=== PATIENT | male | born 1955 | race Caucasian/White ===

== ENCOUNTER 2023-05-12 16:29 | Emergency (ER) | payer OTHER, SELFPAY ==
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
[2023-05-12 16:31] VITALS: BP 137/64; PULSE 70; RESP 18; TEMP 36.4; O2SAT 99
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
--- NOTE | 2023-05-12 16:45 | ECG_ITS ---
Measurements Intervals [place] Rate: 71 P: 56 NH: 172 QRS: 27 QRSD: 105 T: 81 QT: 387 QTc: 421 Interpretive Statements SINUS RHYTHM WITHIN NORMAL LIMITS NO PREVIOUS ECG AVAILABLE FOR COMPARISON Electronically Signed On 05-13-2023 16:45:42 SALVAGE REPAIRER by Baron Castillo M.D.
== END 2023-05-12 19:52 | disposition home or self-care (01) ==
PROVIDERS: Emergency Provider Nurse Practitioner Family
DX: S39.012A Strain of muscle, fascia and tendon of lower back, initial encounter (principal); V49.50XA Passenger injured in collision with unspecified motor vehicles in traffic accident, initial encounter
CPT/HCPCS: 70450; 72125; 72128; 72131; 73030; 93005; 99284; A4565; L0140

== ENCOUNTER 2024-05-30 12:55 | Emergency (ER) | payer OTHER, SELFPAY ==
--- NOTE | ~2024-05-30 | XR_ITS ---
EXAMINATION: XR foot RT min 3V DATE: 05/30/2024 14:13 INDICATION: Right foot injury. TECHNIQUE: 3 views of right foot were obtained. COMPARISON: None. FINDINGS: Alignment is normal. No fracture. Joint spaces are normal. There are enthesophytes at the p osterior and plantar aspects of calcaneal tuberosity. IMPRESSION: 1. No fracture. Reviewed, dictated and finalized at location A. [employer] IMPRESSION: 1. No fracture.
[2024-05-30 12:57] VITALS: BP 160/74; PULSE 91; RESP 18; TEMP 36.7; O2SAT 98
--- OUTSIDE RECORDS SUMMARY | 2024-05-30 12:58 | XMS_ITS | Patient Health Record ---
Author Organization [facility] Address [address] [place] [address] Care Team Providers Care Assistant Center Manager Name Role Phone Jb Bejarano Primary Care Provider Reason For Referral No Information Plan Of Treatment No Information Insurance Providers Payer Name Payer Address Payer Phone Subscriber Number Group Number Insured Name Patient Relationship to Insured Coverage Start Date Coverage End Date [facility] [address] [address] [place] [address] [id number] Checo Carr Self - patient is the insured 3
--- OUTSIDE RECORDS SUMMARY | 2024-05-30 15:17 | XMS_ITS ---
Author Name [facility] [place] [facility] Address [address] [place] [address] Care Team Providers Care Maintenance Of Way Clerk Name Role Phone IVAN MEDINA Primary Care Provider Unavailabl e Insurance Providers: All historical and current Section Date Range: From patient's date of to the date document was created. This section includes the names of all active insurance providers for the patient. Insurance Provider Type of Coverage Plan Name Start of Policy Coverage End of Policy Coverage Group Number Member ID Insurance Provider's Telephone Number Policy Wolf's Name Patient's Relationship to Policy Wolf MEDICARE (WNR) MEDICARE (M) PART A August 06, 2021 PART A [id number] Rajesh CARR RUCE PATIENT MEDICARE (WNR) MEDICARE (M) PART A August 06, 2021 PART A [id number] Rajesh CARR RUCE PATIENT OFFICE OF [facility] [id number] TORT FEASOR TORT FEASO R May 12, 2023 TORT FEASOR [id number] Rajesh CARR RUCE PATIENT Selected Encounter This section includes the information on record at [place] for the Encounter. Date/Time Encounter Type Encounter Description Reason Provider Source Jan 16, 2024 11:37 AM Outpatient Encounter ADMIN PAT ACTIVTIES (MASNONCT) IVAN MEDINA IHAmrita Encounter Template Text not used by [place] Plan of Treatment: Future Appointments (+ 6 months) and Future Tests (+/- 45 days) The Plan of Treatment section includes future care activities for the patient from all [place] [facility]. This section includes future appointments and future orders which are active, pending or scheduled. Future Appointments This section includes appointments that were scheduled to occur 6 months from the date of the Encounter, up to a maximum of 20 appointments. The data comes from all [place] treatment facilities. Appointment Date/Time Appointment Type Appointme nt Facility Name Feb 03, 2024 09:30 AM AMBULATORY - MEDICINE [facility] Jun 04, 2024 09:30 AM AMBULATORY - SURGERY [facility] Social History: Smoking Status (Most current) and Tobacco Use (All prior to encounter date) This section includes the most current, and the historical, smoking and tobacco- related health factors from the [place] facility where the Encounter took place. Current Smoking Status This section includes the most current smoking, or tobacco-related health factor, from the [place] facility where the Encounter took place. Date/Time Current Smoking Status Comment Facil ity Oct 25, 2022 05:52 PM ORYX ADMIT TOBACCO SCREEN YES [facility] Tobacco Use History This section includes a history of the smoking, or tobacco-related health factors, that were collected on or before the date of the Encounter. The data comes from the [place] facility where the Encounter took place. Date/Time Smoking Status/Tobacco Use Comment F acility Oct 25, 2022 05:52 PM ORYX ADMIT TOBACCO USE CIGS GR 5D [facility] Oct 25, 2022 05:52 PM ORYX DAILY TOBACCO HOUSE SUPERINTENDENT REFUSED [facility] Oct 25, 2022 05:52 PM ORYX DAILY TOBACCO MEDS REFUSED [facility] Advance Directives: All historical and current Section Date Range: From patient's date of to the date document was created. This section includes ALL of a patient's completed or amended [place] Advance and Rescinded Directives. The entries below indicate that a directive exists for the patient, but an actual copy is not included with this document. The data comes from all [place] facilities. Date Advance Directives Provider Source Oct 31, 2022 ADVANCE DIRECTIVE DISCUSSION CORINNE JENKINSER [facility] Oct 26, 2022 ADVANCE DIRECTIVE DISCUSSION ROSIE FRANCOIS [facility] Mar 10, 2002 ADVANCE DIRECTIVE ROSE HAQUE [facility] Encounter Notes: All associated encounter notes This section contains the clinical notes associated to the Encounter. Date/Time Encounter Note(s) Provider Source Jan 16, 2024 11:37 AM PHYSICIAN LETTERS: LOCAL TITLE: NO CONTACT LETTER ST STANDARD TITLE: PHYSICIAN LETTERS DATE OF NOTE: JAN 16, 2024@11:37 ENTRY DATE: JAN 16, 2024@11:37:34 AUTHOR: CHANEL MORENO COSIGNER: URGENCY: STATUS: COMPLETED [facility] [address] [place] [address] JAN 16, 2024 CHECO CARR [address] [place] [address] Dear Checo Carr, Thank you for choosing the [facility] as your primary choice for health care. As a partner in your health care, we are attempting to contact you because we have been unsuccessful in reaching you by phone to schedule your clinic appointment. Please call us at [phone], extension [phone] to speak to us regarding making an appointment in the [facility] clinic. Your good health is important to us. Please contact us within 2 weeks from the date of this letter. If we do not hear from you, we will notify your referring provider and a new referral will be required to schedule an appointment. IMPORTANT: Due to COVID-19 we have greatly expanded our telehealth options, please contact the clinic to inquire about scheduling. Sincerely, CHANEL MORENO LEAD MANAGER FOOD BEVERAGE CHECO CARR ERICA S [facility]
--- OUTSIDE RECORDS SUMMARY | 2024-05-30 15:17 | XMS_ITS | Continuity of Care Document ---
Author Name [facility] Organization 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 Unavailable Unavailable Problems Combined list of problems from Department of Defense and Veterans Affairs facilities. It does not include entries that were removed or entered in error. Problem Status Onset Date Problem Type Date of Resolution Comments Source Adenomatous polyp of colon Active Condition May 11, 2014 Entered By: ZINA FRANCISCO Comment: with low grade dysplasia from 02/2010 [facility] Alcohol abuse Active Condition 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, 2014 Entered By: ZINA FRANCISCO Comment: no dysplasia per EGD and path from 02/2010 [facility] Augustine's Esophagus Active Condition Mar 13, 2010 Entered By: KIRSTIE ENCARNACION Comment: EGD 02/22/10 [facility] no dysplasia repeat EGD 1 year [facility] Benign essential hypertension Active Condition [facility] Cervical radiculopathy Active Condition [facility] cervical surgery Active Condition Aug 03, 2011 Entered By: DONNA ALONSO Comment: 07/2011 anterior cervical diskectomy,allo graft insertion [facility] Chronic obstructive lung disease Active Condition [facility] Colonic polyp Active Condition [facility] Coronary artery disease Active Condition [facility] Depressive disorder Active Condition [facility] Esophageal Reflux (ICD-9-CM 530.81) Active Condition [facility] Essential Hypertension (ICD-9-CM 401.9) Active Condition [facility] Family History of Colon Cancer Active Condition Mar 29, 2000 Entered By: DIANE ALVES Comment: Father diagnosed with colon cancer age 61 [facility] Family Hx-GI Malignancy Active Condition [facility] Gastroesophageal reflux disease Active Condition [facility] Gastrooesophageal reflux disease Active Condition [facility] H/O: attempted suicide Active Condition [facility] Headache * (ICD-9-CM 784.0) Active Condition [facility] History of cocaine abuse Active Condition [facility] HTN - Hypertension ([facility] [id number]) Active Condition [facility] Hyponatremia Active Condition [facility] Inguinal hernia without obstruction AND without gangrene Active Condition [facility] Irritable colon Active Condition [facility] Neck pain Active Condition [facility] Open wound of fingers, with tendon involvement (ICD-9-CM 883.2) Active Condition [facility] Personal History of Colonic Polyps Active Condition Mar 13, 2010 Entered By: KIRSTIE ENCARNACION Comment: colonoscopy 02/22/10 2 tubulovillous adenomas 1 tubular adenDec 2009 Entered By: KIRSTIE ENCARNACION Comment: repeat colonoscopy 3 years [facility] Restless Legs * (ICD-9-CM 333.99) Active Condition [facility] Routine General Medical Examination at a Health Care Facility * Active Condition [facility] Seizure disorder Active Condition [facility] Senile hyperkeratosis Active Condition [facility] Smoker Active Condition [facility] Tobacco dependence Active Condition [facility] ACUTE SINUSITIS NOS Inactive Condition 09/08/2001 [facility] Amputation of the index finger Inactive Condition 01/25/2010 [facility] Amputation of the middle finger Inactive Condition 01/25/2010 [facility] Amputation of the ring finger Inactive Condition 01/25/2010 [facility] CELLULITIS NOS Inactive Condition 09/08/2001 [facility] COMB DRUG DEP NEC-UNSPEC Inactive Condition 01/25/2010 [facility] IDIO PERIPH NEURPTHY NOS Inactive Condition 01/25/2010 [facility] NONSPECIF SKIN ERUPT NEC Inactive Condition 01/25/2010 [facility] SPC SCRN MALIG,OTH SITES Inactive Condition 01/25/2010 [facility] TOBACCO USE DISORDER Inactive Condition 01/25/2010 [facility] Diagnosis: ICD-10-CM I25.10 Athscl heart disease of [place] coronary artery w/o ang pctrs Active Diagnosis [facility] Diagnosis: ICD-10-CM Z01.810 Encounter for preprocedural cardiovascular examination Active Diagnosis [facility] Diagnosis: ICD-10-CM R19.7 Diarrhea, unspecified Active Diagnosis [facility] Diagnosis: ICD-10-CM R11.10 Vomiting, unspecified Active Diagnosis [facility] Diagnosis: ICD-10-CM R10.13 Epigastric pain Active Diagnosis [facility] Diagnosis: ICD-10-CM K29.00 Acute gastritis without bleeding Active Diagnosis [facility] Diagnosis: ICD-10-CM I10 Essential (primary) hypertension Active Diagnosis [facility] Diagnosis: ICD-10-CM I25.119 Athscl heart disease of [place] cor art w unsp ang pctrs Active Diagnosis [facility] Diagnosis: ICD-10-CM 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 Medication Details Route Status Patient Instructions Prescription Expires Prescription Number Last Dispense Date Ordering Provider Order Date Order Qty Source ALBUTEROL 100MCG/IPRA TROPIUM BR 20MCG/SPRAY INHALER,ORA L,4GM INHALE 1 PUFF ORAL INHALATI ON FOUR TIMES A DAY DIRECTED FOR COPD RESPIR ATORY (INHAL ATION) SUSPEND ED 01/23/2025 [id number] NAVID MEDINA AMGELY T 2024 3 [facility] ALBUTEROL 100MCG/IPRA TROPIUM BR 20MCG/SPRAY INHALER,ORA L,4GM INHALE 1 PUFF ORAL INHALATI ON FOUR TIMES A DAY DIRECTED FOR COPD RESPIR ATORY (INHAL ATION) DISCONT INUED 03/27/2024 [id number] SHANTE NEWMAN 2022 3 [facility] ALBUTEROL SO4 90MCG/ACTUA T (CFC-F) INHL,ORAL,8 .5GM INHALE 1 PUFF BY ORAL INHALATI ON FOUR TIMES A DAY NEEDED FOR ASTHMA SHAKE WELL. RINSE MOUTHPIE CE FREQUENT LY TO PREVENT CLOGGING . RESPIR ATORY (INHAL ATION) ACTIVE 01/23/2025 [id number] 4 NAVID MEDINA T 2023 3 [facility] ALBUTEROL SO4 90MCG/ACTUA T (CFC-F) INHL,ORAL,8 .5GM INHALE 1 PUFF BY ORAL INHALATI ON FOUR TIMES A DAY NEEDED FOR ASTHMA SHAKE WELL. RINSE MOUTHPIE CE FREQUENT LY TO PREVENT CLOGGING . RESPIR ATORY (INHAL ATION) DISCONT INUED 10/30/2023 [id number] 4 [facility] JAMAL Juarez 2022 3 [facility] Albuterol Sulfate 0.1 mg/Actuatio n + Ipratropium Aurora 0.02 mg/Actuat Aerosol powder, Inhalation INHALE 1 PUFF ORAL INHALATI ON FOUR TIMES A DAY DIRECTED FOR COPD 03/27/2024 [id number] SHANTE NEWMAN 2022 3 [facility] ASPIRIN 81MG TAB,EC TAKE ONE TABLET BY MOUTH ONCE A DAY FOR CARDIOVA SCULAR DISEASE TAKE WITH FOOD. ORAL ACTIVE 02/03/2025 [id number] 4 Larry WALKER 2023 120 [facility] ASPIRIN 81MG TAB,EC TAKE ONE TABLET BY MOUTH ONCE A DAY FOR CARDIOVA SCULAR DISEASE TAKE WITH FOOD. ORAL DISCONT INUED (EDIT) 11/14/2024 [id number] 4 [facility] Juarez 2023 120 [facility] ASPIRIN 81MG TAB,EC TAKE ONE TABLET BY MOUTH ONCE A DAY FOR CARDIOVA SCULAR DISEASE TAKE WITH FOOD. ORAL DISCONT INUED 10/30/2023 [id number] 4 [facility] 2022 120 [facility] ASPIRIN EC (U/D) 81 MG ORAL TBEC TAKE ONE TABLET BY MOUTH ONCE A DAY FOR CARDIOVA SCULAR DISEASE TAKE WITH FOOD. 10/30/2023 [id number] 4 [facility] 2023 120 [facility] atorvastati n (U/D) 80 MG ORAL TAB TAKE ONE TABLET BY MOUTH EVERY EVENING FOR HIGH CHOLESTE ROL 10/30/2023 [id number] [facility] 2023 90 [facility] ATORVASTATI N CA 80MG TAB TAKE ONE TABLET BY MOUTH EVERY EVENING FOR HIGH CHOLESTE ROL ORAL ACTIVE 02/03/2025 [id number] 5 Larry WALKER 2024 90 [facility] ATORVASTATI N CA 80MG TAB TAKE ONE TABLET BY MOUTH EVERY EVENING FOR HIGH CHOLESTE ROL ORAL DISCONT INUED (EDIT) 01/23/2025 [id number] 4 NAVID MEDINA T 2023 90 [facility] ATORVASTATI N CA 80MG TAB TAKE ONE TABLET BY MOUTH EVERY EVENING FOR HIGH CHOLESTE ROL ORAL DISCONT INUED 10/30/2023 [id number] 4 [facility] 2022 90 [facility] BISACODYL 5 MG ORAL TBEC TAKE TWO TABLETS BY MOUTH ONE TIME TAKE BISACODY L TABLETS AT 4PM ON AFTERNOO N PRIOR TO TEST. CALL WITH ANY QUESTION S ABOUT THESE INSTRUCT IONS. WINDOW 10/31/2023 [id number] 4 ZAYNAB DURAN 2023 2 [facility] BISACODYL 5MG TAB,EC TAKE TWO TABLETS BY MOUTH ONE TIME TAKE BISACODY L TABLETS AT 4PM ON AFTERNOO N PRIOR TO TEST. CALL WITH ANY QUESTION S ABOUT THESE INSTRUCT IONS. WINDOW TAKE BISACODY L TABLETS AT 4PM ON AFTERNOO N PRIOR TO TEST. CALL [phone] WITH ANY QUESTION S ABOUT THESE INSTRUCT IONS. WINDOW ORAL 10/31/2023 [id number] 4 ZAYNAB DURAN 2023 2 [facility] CYCLOBENZAP RINE (U/D) 10 MG ORAL TAB TAKE ONE TABLET BY MOUTH THREE TIMES A DAY NEEDED FOR MUSCLE SPASM MAY CAUSE DROWSINE SS. DO NOT DRINK ALCOHOL WHILE TAKING THIS MEDICATI ON. 09/14/2023 [id number] 4 MELANIE BUCKLEY R 2023 180 [facility] CYCLOBENZAP RINE HCL 10MG TAB TAKE ONE TABLET BY MOUTH THREE TIMES A DAY NEEDED FOR MUSCLE SPASM MAY CAUSE DROWSINE SS. DO NOT DRINK ALCOHOL WHILE TAKING THIS MEDICATI ON. ORAL 09/14/2023 [id number] 4 LIBORIO BUCKLEY R 2023 180 [facility] FLOMAX (BRAND) 0.4 MG ORAL CAP TAKE ONE CAPSULE BY MOUTH EVERY EVENING APPROXIM ATELY 30 MINUTES AFTER THE SAME MEAL EACH DAY (FOR PROSTATE ) 04/18/2024 [id number] 4 DEWAYNE WHITTAKER 2023 30 [facility] FLOMAX (BRAND) 0.4 MG ORAL CAP TAKE ONE CAPSULE BY MOUTH EVERY EVENING APPROXIM ATELY 30 MINUTES AFTER THE SAME MEAL EACH DAY (FOR PROSTATE ) Discont inued 09/27/2023 [id number] 3 IVAN MEDINA 2023 30 [facility] n guaiFENesin 400 MG ORAL TAB TAKE ONE TABLET BY MOUTH EVERY 4 HOURS NEEDED FOR MUCUS THINNING TAKE WITH 8 OUNCE GLASS OF WATER. Active 07/16/2024 [id number] 4 MELANIE BUCKLEY R 2023 90 [facility] GUAIFENESIN 400MG TAB TAKE ONE TABLET BY MOUTH EVERY 4 HOURS NEEDED FOR MUCUS THINNING TAKE WITH 8 OUNCE GLASS OF WATER. ORAL ACTIVE 07/16/2024 [id number] 5 LIBORIO BUCKLEY Beata 2023 90 [facility] IBUPROFEN 600MG TAB TAKE ONE TABLET BY MOUTH THREE TIMES A DAY ORAL ACTIVE ABELARDO MENESES 2006 [facility] levETIRAcet am 500 MG ORAL TAB TAKE ONE TABLET BY MOUTH TWICE A DAY FOR SEIZURES . SWALLOW WHOLE, DO NOT CRUSH, SPLIT, OR CHEW. 12/26/2023 [id number] 4 NAVID MEDINAMOLINA T 2023 180 [facility] LEVETIRACET AM 500MG TAB TAKE ONE TABLET BY MOUTH TWICE A DAY FOR SEIZURES . SWALLOW WHOLE, DO NOT CRUSH, SPLIT, OR CHEW. ORAL ACTIVE 01/23/2025 [id number] 4 CAROL,NAVID AUGUSTE T 2023 180 [facility] LEVETIRACET AM 500MG TAB TAKE ONE TABLET BY MOUTH TWICE A DAY FOR SEIZURES . SWALLOW WHOLE, DO NOT CRUSH, SPLIT, OR CHEW. ORAL DISCONT INUED 12/26/2023 [id number] 4 NAVID MEDINA MOLINA T 2022 180 [facility] LEVETIRACET AM 500MG TAB TAKE ONE TABLET BY MOUTH ONCE A DAY ORAL ACTIVE NATALIE QUESADA 2022 [facility] lisinopril (U/D) 20 MG ORAL TAB TAKE ONE-HALF TABLET BY MOUTH ONCE A DAY FOR ACUTE CORONARY SYNDROME Active 07/22/2024 [id number] 4 BEBO CASTRO 2023 45 [facility] LISINOPRIL 20MG TAB TAKE ONE-HALF TABLET BY MOUTH ONCE A DAY FOR ACUTE CORONARY SYNDROME ORAL DISCONT INUED (EDIT) 07/22/2024 [id number] 4 SHAR CASTRO 2023 45 [facility] LISINOPRIL 40MG TAB TAKE ONE-HALF TABLET BY MOUTH ONCE A DAY ORAL ACTIVE 02/03/2025 [id number] 5 Larry WALKER 2023 45 [facility] LISINOPRIL 40MG TAB TAKE ONE TABLET BY MOUTH EVERY MORNING ORAL ACTIVE NATALIE QUESADA 2022 [facility] LOPERAMIDE HCL 2MG CAP TAKE ONE CAPSULE BY MOUTH THREE TIMES A DAY NEEDED FOR DIARRHEA 4MG FOLLOWED BY 2MG AFTER EACH LOOSE STOOL MAXIMUM 16MG/DAY ORAL 10/14/2023 [id number] 4 Patrick BURTON 2023 30 [facility] LOPERAMIDE HCL 2MG TAB TAKE ONE TABLET BY MOUTH EVERY 8 HOURS NEEDED ORAL ACTIVE JOSE ESPINOSA 2022 [facility] metoprolol succ (U/D) 50 MG ORAL TB24 TAKE ONE-HALF TABLET BY MOUTH ONCE A DAY SWALLOW WHOLE, DO NOT CRUSH OR CHEW (TABLETS MAY BE CUT IN HALF). Active 07/16/2024 [id number] 4 MELANIE BUCKLEY 2023 45 [facility] metoprolol succ (U/D) 50 MG ORAL TB24 TAKE ONE-HALF TABLET BY MOUTH ONCE A DAY SWALLOW WHOLE, DO NOT CRUSH OR CHEW (TABLETS MAY BE CUT IN HALF). Discont inued 10/30/2023 [id number] 4 TAQUERIA SANZ 2023 45 [facility] METOPROLOL SUCCINATE 50MG TAB,SA TAKE ONE-HALF TABLET BY MOUTH ONCE A DAY SWALLOW WHOLE, DO NOT CRUSH OR CHEW (TABLETS MAY BE CUT IN HALF). ORAL ACTIVE 07/16/2024 [id number] 5 LIBORIO BUCKLEY 2023 45 [facility] METOPROLOL SUCCINATE 50MG TAB,SA TAKE ONE-HALF TABLET BY MOUTH ONCE A DAY SWALLOW WHOLE, DO NOT CRUSH OR CHEW (TABLETS MAY BE CUT IN HALF). ORAL DISCONT INUED 10/30/2023 [id number] 4 [facility] Juarez 2022 45 [facility] MULTIVITAMI NS CAP/TAB TAKE 1 TABLET BY MOUTH ONCE A DAY FOR NUTRITIO N/DIETAR Y SUPPLEME NTATION ORAL 10/30/2023 [id number] 4 [facility] M 2022 100 [facility] OMEPRAZOLE 20MG CAP,EC TAKE 1 CAPSULE BY MOUTH EVERY MORNING ORAL ACTIVE JOSE ESPINOSA 2022 [facility] ONDANSETRON (U/D) 8 MG ORAL TAB TAKE ONE-HALF TABLET BY MOUTH EVERY EIGHT(8) HOURS NEEDED FOR NAUSEA/V OMITING 10/14/2023 [id number] 4 MARCIAL CHINCHILLA 2023 15 [facility] ONDANSETRON HCL 8MG TAB TAKE ONE-HALF TABLET BY MOUTH EVERY EIGHT(8) HOURS NEEDED FOR NAUSEA/V OMITING ORAL 10/14/2023 [id number] 4 Patrick BURTON 2023 15 [facility] ONDANSETRON HCL 8MG TAB,ORALLY DISINTEGRAT ING TAKE ONE TABLET UNDER THE TONGUE EVERY EIGHT(8) HOURS NEEDED SUBLIN GULUCIA 11/06/2023 [id number] 4 JOE ROBERSON 2023 90 [facility] PANTOPRAZOL E (U/D) 40 MG ORAL TBEC TAKE ONE TABLET BY MOUTH EVERY MORNING BEFORE A MEAL FOR ULCER PREVENTI ON TAKE 30 MINUTES BEFORE MEAL(S) REPLACES OMEPRAZO LE WHILE ON CLOPIDOG REL S/P CABG 10/14/2023 [id number] 4 MELANIE BUCKLEY 2023 90 [facility] PANTOPRAZOL E (U/D) 40 MG ORAL TBEC TAKE ONE TABLET BY MOUTH EVERY MORNING BEFORE A MEAL FOR ULCER PREVENTI ON TAKE 30 MINUTES BEFORE MEAL(S) REPLACES OMEPRAZO LE WHILE ON CLOPIDOG REL S/P CABG Discont inued 09/02/2023 [id number] IVAN MEDINA T 2023 90 [facility] PANTOPRAZOL E (U/D) 40 MG ORAL TBEC TAKE ONE TABLET BY MOUTH EVERY MORNING BEFORE A MEAL FOR ULCER PREVENTI ON TAKE 30 MINUTES BEFORE MEAL(S) REPLACES OMEPRAZO LE WHILE ON CLOPIDOG REL S/P CABG 09/02/2023 [id number] 4 NAVID MEDINAMOLINA T 2023 90 [facility] PANTOPRAZOL E NA 40MG TAB,EC TAKE ONE TABLET BY MOUTH EVERY MORNING BEFORE A MEAL FOR ULCER PREVENTI ON TAKE 30 MINUTES BEFORE MEAL(S) REPLACES OMEPRAZO LE WHILE ON CLOPIDOG REL S/P CABG ORAL DISCONT INUED 09/02/2023 [id number] 4 NAVID MEDINA AMGELY T 2023 90 [facility] PANTOPRAZOL E NA 40MG TAB,EC TAKE ONE TABLET BY MOUTH EVERY MORNING BEFORE A MEAL FOR ULCER PREVENTI ON TAKE 30 MINUTES BEFORE MEAL(S) REPLACES OMEPRAZO LE WHILE ON CLOPIDOG REL S/P CABG ORAL 10/14/2023 [id number] 4 INA,LIBORIO ONICA R 2023 90 [facility] PEG-3350/EL ECTROLYTES PWDR MIX AND DRINK CONTENTS OF BOTTLE BY MOUTH DIRECTED (THE DAY BEFORE YOUR TEST ONLY DRINK CLEAR LIQUIDS- NO SOLID FOOD! TAKE THE BISACODY L TABLETS AT 4PM AND MIX THE GOLYTELY WITH WATER AND REFRIGER ATE. AT 7PM DRINK HALF OF THE GOLYTELY . REFRIGER ATE OVERNIGH T. COMPLETE GOLYTELY 3 HRS BEFORE LEAVING HOME FOR TEST. READ YOUR INSTRUCT IONS!) (THE DAY BEFORE YOUR TEST ONLY DRINK CLEAR LIQUIDS- NO SOLID FOOD! TAKE THE BISACODY L TABLETS AT 4PM AND MIX THE GOLYTELY WITH WATER AND REFRIGER ATE. AT 7PM DRINK HALF OF THE GOLYTELY . REFRIGER ATE OVERNIGH T. COMPLETE GOLYTELY 3 HRS BEFORE LEAVING HOME FOR TEST. READ YOUR INSTRUCT IONS!) ORAL 10/31/2023 [id number] 4 ZAYNAB DURAN 2023 1 [facility] simethicone 80 MG ORAL CHEW CHEW AND SWALLOW FOUR TABLETS BY MOUTH DIRECTED FOR TWO DOSES BEFORE GI PROCEDUR E 10/31/2023 [id number] 4 ZAYNAB DURAN 2023 8 [facility] SIMETHICONE 80MG TAB,CHEW CHEW AND SWALLOW FOUR TABLETS BY MOUTH DIRECTED FOR TWO DOSES BEFORE GI PROCEDUR E ORAL 10/31/2023 [id number] ZAYNAB DURAN 2023 8 [facility] TAMSULOSIN HCL 0.4MG CAP TAKE ONE CAPSULE BY MOUTH EVERY EVENING APPROXIM ATELY 30 MINUTES AFTER THE SAME MEAL EACH DAY (FOR PROSTATE ) ORAL ACTIVE 05/07/2025 [id number] 5 NAVID MEDINA T 2024 90 [facility] TAMSULOSIN HCL 0.4MG CAP TAKE ONE CAPSULE BY MOUTH EVERY EVENING APPROXIM ATELY 30 MINUTES AFTER THE SAME MEAL EACH DAY (FOR PROSTATE ) ORAL DISCONT INUED 11/13/2024 [id number] 4 NAVID MEDINA T 2023 90 [facility] TAMSULOSIN HCL 0.4MG CAP TAKE ONE CAPSULE BY MOUTH EVERY EVENING APPROXIM ATELY 30 MINUTES AFTER THE SAME MEAL EACH DAY (FOR PROSTATE ) ORAL DISCONT INUED 11/13/2024 [id number] 4 NAVID MEDINA T 2023 90 [facility] TAMSULOSIN HCL 0.4MG CAP TAKE ONE CAPSULE BY MOUTH EVERY EVENING APPROXIM ATELY 30 MINUTES AFTER THE SAME MEAL EACH DAY (FOR PROSTATE ) ORAL DISCONT INUED 04/18/2024 [id number] 4 NAVID MEDINA T 2023 30 [facility] TAMSULOSIN HCL 0.4MG CAP TAKE ONE CAPSULE BY MOUTH EVERY EVENING APPROXIM ATELY 30 MINUTES AFTER THE SAME MEAL EACH DAY (FOR PROSTATE ) ORAL DISCONT INUED 09/27/2023 [id number] 3 NAVID MEDINALuisito T 2022 30 [facility] TAMSULOSIN HCL 0.4MG CAP TAKE 1 CAPSULE BY MOUTH ONCE A DAY ORAL ACTIVE NATALIE QUESADA 2022 [facility] THIAMINE 100MG TAB TAKE ONE TABLET BY MOUTH ONCE A DAY FOR VITAMIN B1 SUPPLEME NTATION ORAL 10/30/2023 [id number] 4 LISANDRAALGAB MA 2022 100 [facility] Thiamine 100mg, Tablet, Oral TAKE ONE TABLET BY MOUTH ONCE A DAY FOR VITAMIN B1 SUPPLEME NTATION 10/30/2023 [id number] 4 TAQUERIA SANZ 2023 100 [facility] Allergies, Adverse Reactions, Alerts Combined list of allergies from Department of Defense and Veterans Affairs facilities. It does not include entries that were removed or entered in error. Substance Category Reaction Severity Reaction type Status Date Reported Comments Source BETADINE Propensity to adverse reactions to drug (finding) Urticaria MODERATE active 3 [facility] DIAZEPAM Drug allergy (disorder) Nausea and Vomiting active 5 [facility] DIAZEPAM Propensity to adverse reactions to drug (finding) active 3 [facility] Hydrocodone Drug allergy (disorder) Nausea and Vomiting active 1 [facility] HYDROCODONE Drug allergy (disorder) Nausea and Vomiting active 5 [facility] HYDROCODONE Propensity to adverse reactions to drug (finding) active 3 [facility] IODINE CONTRAST EVEN WITH PREP Propensity to adverse reactions to drug (finding) Eruption active [address] [facility] VALIUM Propensity to adverse reactions to drug (finding) Eruption, SWEATING active 1 [facility] VALIUM Propensity to adverse reactions to drug (finding) Nausea and vomiting active 5 [facility] VICODIN Propensity to adverse reactions to drug (finding) Nausea and vomiting active 5 [facility] Immunizations Combined list of available immunizations from the Department of Defense and Veterans Affairs facilities. Immunization Series Date Given Administered By Site Reaction Lot Number CVX Code Drug Motor Assembly Supervisor Status Comments Source ZOSTER RECOMBINANT 2 2021 187 complet ed [facility] ZOSTER RECOMBINANT 1 2020 187 complet ed [facility] COVID-19 (MODERNA), MRNA, LNP-S, PF, 100 MCG/0.5 ML DOSE 2 2020 207 complet ed MOD; [id number]; 1 [facility] COVID-19 (MODERNA), MRNA, LNP-S, PF, 100 MCG/0.5 ML DOSE 1 2020 207 complet ed MOD; [id number]; 1 [facility] INFLUENZA, UNSPECIFIED FORMULATION 2014 88 complet ed [facility] PNEUMOCOCCAL POLYSACCHARID E PPV23 2014 33 complet ed [facility] TDAP 2013 115 complet ed [facility] INFLUENZA, UNSPECIFIED FORMULATION 2010 88 complet ed [facility] TD(ADULT) UNSPECIFIED FORMULATION 2006 139 complet ed Left Deltoid 0.5ml IM [place] [facility] TD(ADULT) UNSPECIFIED FORMULATION 1996 139 complet ed [facility] Results Combined list of recent chemistry, hematology and other laboratory results from Department of Defense and Veterans Affairs, ranging from 15 months to all on record, depending upon the facility. Order Name Results Value Reference Range Date Interpretation Specimen Comments Source OCCULT BLOOD FIT X1 SCREEN HEMOGLOBIN .GASTROINT ESTINAL.LO WER [PRESENCE] IN STOOL BY IMMUNOASSA Y Negative 10/03 Specimen Type: FECES No comment entered. Ordering Provider: ME LILI DURAN Report Released Date/Time: Oct 10, 2023 11:53 AM Reporting Lab: [facility] [address] [facility] [address] Performing Lab: [facility] [address] [address] [facility] BRAIN NATRIURE TIC PEPTIDE NATRIURETI C PEPTIDE B [MASS/VOLU ME] IN SERUM OR PLASMA 60.5 pg/mL 0 - 100 09/13 Specimen Type: PLASMA No comment entered. Ordering Provider: HORACIO BURTON Report Released Date/Time: Sep 14, 2023 12:46 PM Reporting Lab: [place] [address] Performing Lab: [address] [id number] [facility] LEUKOCYTES [#/VOLUME] IN BLOOD BY AUTOMATED COUNT 7.4 10*3/uL 3.6 - 11.2 09/13 Specimen Type: BLOOD No comment entered. Ordering Provider: HORACIO BURTON Report Released Date/Time: Sep 14, 2023 11:26 AM Reporting Lab: [address] [address] Performing Lab: [address] [id number] [address] [facility] ERYTHROCYT ES [#/VOLUME] IN BLOOD BY AUTOMATED COUNT 4.20 10*6/uL 4.10 - 5.70 09/13 Specimen Type: BLOOD No comment entered. Ordering Provider: HORACIO BURTON Report Released Date/Time: Sep 14, 2023 11:26 AM Reporting Lab: [address] [address] Performing Lab: [id number] [place] [address] CBC HEMOGLOBIN [MASS/VOLU ME] IN BLOOD 13.8 g/dL 13.1 - 16.8 09/13 Specimen Type: BLOOD No comment entered. Ordering Provider: HORACIO BURTON Report Released Date/Time: Sep 14, 2023 11:26 AM Reporting Lab: [address] [address] Performing Lab: [address] [place] [address] [facility] CBC HEMATOCRIT [VOLUME FRACTION] OF BLOOD 39.5 38.2 - 48.4 09/13 Specimen Type: BLOOD No comment entered. Ordering Provider: HORACIO BURTON Report Released Date/Time: Sep 14, 2023 11:26 AM Reporting Lab: [address] [address] Performing Lab: [address] [address] [facility] CBC MCV [ENTITIC VOLUME] BY AUTOMATED COUNT 94.0 fL 80.0 - 100.0 09/13 Specimen Type: BLOOD No comment entered. Ordering Provider: HORACIO BURTON Report Released Date/Time: Sep 14, 2023 11:26 AM Reporting Lab: [address] [address] Performing Lab: [address] [address] [facility] CBC MCH [ENTITIC MASS] BY AUTOMATED COUNT 32.9 pg 27.0 - 34.0 09/13 Specimen Type: BLOOD No comment entered. Ordering Provider: HORACIO BURTON Report Released Date/Time: Sep 14, 2023 11:26 AM Reporting Lab: [address] [address] Performing Lab: [address] [address] [facility] CBC MCHC [MASS/VOLU ME] BY AUTOMATED COUNT 34.9 g/dL 33.0 - 36.0 09/13 Specimen Type: BLOOD No comment entered. Ordering Provider: HORACIO BURTON Report Released Date/Time: Sep 14, 2023 11:26 AM Reporting Lab: [address] [address] Performing Lab: [address] [place] [address] [facility] CBC PLATELETS [#/VOLUME] IN BLOOD BY AUTOMATED COUNT 171 10*3/uL 150 - 400 09/13 Specimen Type: BLOOD No comment entered. Ordering Provider: HORACIO BURTON Report Released Date/Time: Sep 14, 2023 11:26 AM Reporting Lab: [address] [address] Performing Lab: [address] [address] [facility] CBC PLATELET MEAN VOLUME [ENTITIC VOLUME] IN BLOOD BY AUTOMATED COUNT 10.4 fL 7.5 - 11.2 09/13 Specimen Type: BLOOD No comment entered. Ordering Provider: HORACIO BURTON Report Released Date/Time: Sep 14, 2023 11:26 AM Reporting Lab: [address] [address] Performing Lab: [address] [address] [facility] CBC ERYTHROCYT E DISTRIBUTI ON WIDTH [RATIO] BY AUTOMATED COUNT 12.6 11.8 - 15.1 09/13 Specimen Type: BLOOD No comment entered. Ordering Provider: HORACIO BURTON Report Released Date/Time: Sep 14, 2023 11:26 AM Reporting Lab: [address] [address] Performing Lab: [address] [address] [facility] CBC LYMPHOCYTE S/100 LEUKOCYTES IN BLOOD BY AUTOMATED COUNT 18 09/13 Specimen Type: BLOOD No comment entered. Ordering Provider: HORACIO BURTON Report Released Date/Time: Sep 14, 2023 11:26 AM Reporting Lab: [address] [address] Performing Lab: [address] [address] [facility] CBC MONOCYTES/ 100 LEUKOCYTES IN BLOOD BY AUTOMATED COUNT 7 09/13 Specimen Type: BLOOD No comment entered. Ordering Provider: HORACIO BURTON Report Released Date/Time: Sep 14, 2023 11:26 AM Reporting Lab: [facility] [address] [address] Performing Lab: [facility] [address] [address] [facility] CBC NEUTROPHIL S/100 LEUKOCYTES IN BLOOD BY AUTOMATED COUNT 72 09/13 Specimen Type: BLOOD No comment entered. Ordering Provider: HORACIO BURTON Report Released Date/Time: Sep 14, 2023 11:26 AM Reporting Lab: [facility] [address] [address] Performing Lab: [facility] [address] [place] [id number] CBC EOSINOPHIL S/100 LEUKOCYTES IN BLOOD BY AUTOMATED COUNT 2 09/13 Specimen Type: BLOOD No comment entered. Ordering Provider: HORACIO BURTON Report Released Date/Time: Sep 14, 2023 11:26 AM Reporting Lab: [facility] [address] [address] Performing Lab: [facility] [address] [place] [address] [facility] CBC BASOPHILS/ 100 LEUKOCYTES IN BLOOD BY AUTOMATED COUNT 1 09/13 Specimen Type: BLOOD No comment entered. Ordering Provider: HORACIO BURTON Report Released Date/Time: Sep 14, 2023 11:26 AM Reporting Lab: [facility] [address] [place] [address] Performing Lab: [facility] [address] [address] [facility] CBC LYMPHOCYTE S [#/VOLUME] IN BLOOD BY AUTOMATED COUNT 1.30 10*3/uL 0.77 - 4.50 09/13 Specimen Type: BLOOD No comment entered. Ordering Provider: HORACIO BURTON Report Released Date/Time: Sep 14, 2023 11:26 AM Reporting Lab: [address] [address] Performing Lab: [address] [address] [facility] CBC MONOCYTES [#/VOLUME] IN BLOOD BY AUTOMATED COUNT 0.51 10*3/uL 0.19 - 0.80 09/13 Specimen Type: BLOOD No comment entered. Ordering Provider: HORACIO BURTON Report Released Date/Time: Sep 14, 2023 11:26 AM Reporting Lab: [address] [address] Performing Lab: [address] [address] [facility] CBC NEUTROPHIL S [#/VOLUME] IN BLOOD BY AUTOMATED COUNT 5.38 10*3/uL 2.10 - 8.00 09/13 Specimen Type: BLOOD No comment entered. Ordering Provider: HORACIO BURTON Report Released Date/Time: Sep 14, 2023 11:26 AM Reporting Lab: [address] [address] Performing Lab: [address] [address] [facility] CBC EOSINOPHIL S [#/VOLUME] IN BLOOD BY AUTOMATED COUNT 0.17 10*3/uL 0.00 - 0.60 09/13 Specimen Type: BLOOD No comment entered. Ordering Provider: HORACIO BURTON Report Released Date/Time: Sep 14, 2023 11:26 AM Reporting Lab: [address] [address] Performing Lab: [address] [address] [facility] CBC BASOPHILS [#/VOLUME] IN BLOOD BY AUTOMATED COUNT 0.05 10*3/uL 0.00 - 0.20 09/13 Specimen Type: BLOOD No comment entered. Ordering Provider: HORACIO BURTON Report Released Date/Time: Sep 14, 2023 11:26 AM Reporting Lab: [place] [address] [address] Performing Lab: [place] [address] [phone] COMPREHE NSIVE METABOLI C PANEL CREATININE [MASS/VOLU ME] IN SERUM OR PLASMA 0.81 mg/dL 0.7 - 1.3 09/13 Specimen Type: PLASMA Comment: No hemolysis noted. Ordering Provider: HORACIO BURTON Report Released Date/Time: Sep 14, 2023 11:26 AM Reporting Lab: [address] [address] Performing Lab: [place] [address] [address] [facility] COMPREHE NSIVE METABOLI C PANEL UREA NITROGEN [MASS/VOLU ME] IN SERUM OR PLASMA 9.1 mg/dL 9.0 - 25.0 09/13 Specimen Type: PLASMA Comment: No hemolysis noted. Ordering Provider: HORACIO BURTON Report Released Date/Time: Sep 14, 2023 11:26 AM Reporting Lab: [address] [address] Performing Lab: [place] [address] [address] [facility] COMPREHE NSIVE METABOLI C PANEL GLUCOSE [MASS/VOLU ME] IN SERUM OR PLASMA 85 mg/dL 72 - 99 09/13 Specimen Type: PLASMA Comment: No hemolysis noted. Ordering Provider: HORACIO BURTON Report Released Date/Time: Sep 14, 2023 11:26 AM Reporting Lab: [place] [address] [address] Performing Lab: [facility] [address] [facility] [address] [facility] COMPREHE NSIVE METABOLI C PANEL SODIUM [MOLES/VOL UME] IN SERUM OR PLASMA 136 meq/L 136 - 145 09/13 Specimen Type: PLASMA Comment: No hemolysis noted. Ordering Provider: HORACIO BURTON Report Released Date/Time: Sep 14, 2023 11:26 AM Reporting Lab: [facility] [address] [address] Performing Lab: [place] [address] [address] [facility] COMPREHE NSIVE METABOLI C PANEL POTASSIUM [MOLES/VOL UME] IN SERUM OR PLASMA 4.2 meq/L 3.5 - 5 09/13 Specimen Type: PLASMA Comment: No hemolysis noted. Ordering Provider: HORACIO BURTON Report Released Date/Time: Sep 14, 2023 11:26 AM Reporting Lab: [facility] [address] [facility] [address] Performing Lab: [place] [address] [address] [facility] COMPREHE NSIVE METABOLI C PANEL CHLORIDE [MOLES/VOL UME] IN SERUM OR PLASMA 101 meq/L 98 - 107 09/13 Specimen Type: PLASMA Comment: No hemolysis noted. Ordering Provider: HORACIO BURTON Report Released Date/Time: Sep 14, 2023 11:26 AM Reporting Lab: [facility] [address] [address] Performing Lab: [facility] [address] [address] [facility] COMPREHE NSIVE METABOLI C PANEL CARBON DIOXIDE, TOTAL [MOLES/VOL UME] IN SERUM OR PLASMA 24 meq/L 22 - 31 09/13 Specimen Type: PLASMA Comment: No hemolysis noted. Ordering Provider: HORACIO BURTON Report Released Date/Time: Sep 14, 2023 11:26 AM Reporting Lab: [facility] [address] [address] Performing Lab: [facility] [address] [address] [facility] COMPREHE NSIVE METABOLI C PANEL CALCIUM [MASS/VOLU ME] IN SERUM OR PLASMA 9.2 mg/dL 8.4 - 10.4 09/13 Specimen Type: PLASMA Comment: No hemolysis noted. Ordering Provider: HORACIO BURTON Report Released Date/Time: Sep 14, 2023 11:26 AM Reporting Lab: [facility] [address] [place] [address] Performing Lab: [facility] [address] [address] [facility] COMPREHE NSIVE METABOLI C PANEL PROTEIN [MASS/VOLU ME] IN SERUM OR PLASMA 7.4 g/dL 6 - 8.6 09/13 Specimen Type: PLASMA Comment: No hemolysis noted. Ordering Provider: HORACIO BURTON Report Released Date/Time: Sep 14, 2023 11:26 AM Reporting Lab: [facility] [address] [address] Performing Lab: [facility] [address] [address] [facility] COMPREHE NSIVE METABOLI C PANEL ALBUMIN [MASS/VOLU ME] IN SERUM OR PLASMA 4.5 g/dL 3.4 - 5 09/13 Specimen Type: PLASMA Comment: No hemolysis noted. Ordering Provider: HORACIO BURTON Report Released Date/Time: Sep 14, 2023 11:26 AM Reporting Lab: [facility] [address] [address] Performing Lab: [facility] [address] [address] [facility] COMPREHE NSIVE METABOLI C PANEL BILIRUBIN. TOTAL [MASS/VOLU ME] IN SERUM OR PLASMA 1.0 mg/dL 0.2 - 1.2 09/13 Specimen Type: PLASMA Comment: No hemolysis noted. Ordering Provider: HORACIO BURTON Report Released Date/Time: Sep 14, 2023 11:26 AM Reporting Lab: [place] [address] [address] Performing Lab: [place] [address] [address] [place] [address] COMPREHE NSIVE METABOLI C PANEL ALKALINE PHOSPHATAS E [ENZYMATIC ACTIVITY/V OLUME] IN SERUM OR PLASMA 83 U/L 40 - 150 09/13 Specimen Type: PLASMA Comment: No hemolysis noted. Ordering Provider: HORACIO BURTON Report Released Date/Time: Sep 14, 2023 11:26 AM Reporting Lab: [address] [address] Performing Lab: [place] [address] [address] [facility] COMPREHE NSIVE METABOLI C PANEL ASPARTATE AMINOTRANS FERASE [ENZYMATIC ACTIVITY/V OLUME] IN SERUM OR PLASMA 40 U/L 5 - 34 09/13 H Specimen Type: PLASMA Comment: No hemolysis noted. Ordering Provider: HORACIO BURTON Report Released Date/Time: Sep 14, 2023 11:26 AM Reporting Lab: [address] [address] Performing Lab: [place] [address] [address] [facility] COMPREHE NSIVE METABOLI C PANEL ALANINE AMINOTRANS FERASE [ENZYMATIC ACTIVITY/V OLUME] IN SERUM OR PLASMA 34 U/L 8 - 40 09/13 Specimen Type: PLASMA Comment: No hemolysis noted. Ordering Provider: HORACIO BURTON Report Released Date/Time: Sep 14, 2023 11:26 AM Reporting Lab: [place] [address] [address] Performing Lab: [place] [address] [place] [id number] COMPREHE NSIVE METABOLI C PANEL GLOMERULAR FILTRATION RATE/1.73 SQ M.PREDICTE D [VOLUME RATE/AREA] IN SERUM, PLASMA OR BLOOD BY CREATININE -BASED FORMULA (CKD-EPI 2020) 96.6 60 09/13 Specimen Type: PLASMA Comment: No hemolysis noted. Ordering Provider: HORACIO BURTON Report Released Date/Time: Sep 14, 2023 11:26 AM Reporting Lab: [place] [address] [place] [address] Performing Lab: [address] ETHANOL SERUM/PL ASMA (STL) ETHANOL [MASS/VOLU ME] IN SERUM OR PLASMA <10mg/dL 0 - 10 09/13 Specimen Type: PLASMA Comment: No hemolysis noted. Ordering Provider: HORACIO BURTON Report Released Date/Time: Sep 14, 2023 11:26 AM Reporting Lab: [place] [address] Performing Lab: [address] LEVETIRA CETAM LEVETIRACE AZAR [MASS/VOLU ME] IN SERUM OR PLASMA 13.5 ug/mL 6.0 - 46.0 09/13 Specimen Type: SERUM Comment: Brivaraceta m (Briviact(R ), Rikelta(R)) exhibits significant cross-react ivity in the Levetiracet am (Keppra(R), Spritam(R)) immunoassay . If Brivaraceta m has been prescribed, order test code 22600 Levetiracet am by LCMSMS. Ordering Provider: HORACIO BURTON Report Released Date/Time: Sep 14, 2023 11:27 AM Reporting Lab: [place] [address] [place] [phone] Performing Lab: [facility] [address] [facility] LIPASE LIPASE [ENZYMATIC ACTIVITY/V OLUME] IN SERUM OR PLASMA 28 U/L 8 - 78 09/13 Specimen Type: PLASMA Comment: No hemolysis noted. Ordering Provider: HORACIO BURTON Report Released Date/Time: Sep 14, 2023 11:26 AM Reporting Lab: [place] [address] [place] [phone] Performing Lab: [place] [address] [place] [phone] TROPONIN I TROPONIN I.CARDIAC [MASS/VOLU ME] IN SERUM OR PLASMA 0.019 ng/mL 0 - 0.033 09/13 Specimen Type: PLASMA No comment entered. Ordering Provider: HORACIO BURTON Report Released Date/Time: Sep 14, 2023 12:46 PM Reporting Lab: [facility] [address] [place] [phone] Performing Lab: [place] [address] [place] [phone] [place] [address] URINALYS IS (STL-PB) COLOR OF URINE Yellow 07/21 Specimen Type: URINE No comment entered. Ordering Provider: NAVEEN MEDINA Report Released Date/Time: Jun 27, 2023 01:55 PM Reporting Lab: [place] [address] [place] [phone] Performing Lab: [place] [address] [facility] [phone] [place] [address] URINALYS IS (STL-PB) BILIRUBIN. TOTAL [PRESENCE] IN URINE BY TEST STRIP Negative mg/dL 07/21 Specimen Type: URINE No comment entered. Ordering Provider: NAVEEN MEDINA Report Released Date/Time: Jun 27, 2023 01:55 PM Reporting Lab: [place] [address] [place] [address] Performing Lab: [facility] [address] [facility] [address] [facility] URINALYS IS (STL-PB) PH OF URINE BY TEST STRIP 6.5 5.0 - 8.0 07/21 Specimen Type: URINE No comment entered. Ordering Provider: NAVEEN MEDINA Report Released Date/Time: Jun 27, 2023 01:55 PM Reporting Lab: [facility] [address] [place] [phone] Performing Lab: [address] [address] [facility] URINALYS IS (STL-PB) APPEARANCE OF URINE Clear 07/21 Specimen Type: URINE No comment entered. Ordering Provider: NAVEEN MEDINA Report Released Date/Time: Jun 27, 2023 01:55 PM Reporting Lab: [address] [address] Performing Lab: [facility] [address] [place] [phone] [facility] URINALYS IS (STL-PB) NITRITE [PRESENCE] IN URINE BY TEST STRIP Negative mg/dL 07/21 Specimen Type: URINE No comment entered. Ordering Provider: NAVEEN MEDINA Report Released Date/Time: Jun 27, 2023 01:55 PM Reporting Lab: [address] [address] Performing Lab: [facility] [address] [place] [phone] [facility] URINALYS IS (STL-PB) GLUCOSE [MASS/VOLU ME] IN URINE BY TEST STRIP Normalmg /dL 07/21 Specimen Type: URINE No comment entered. Ordering Provider: NAVEEN MEDINA Report Released Date/Time: Jun 27, 2023 01:55 PM Reporting Lab: [address] [address] Performing Lab: [place] [address] [place] [address] [facility] URINALYS IS (STL-PB) PROTEIN [MASS/VOLU ME] IN URINE BY TEST STRIP Negative mg/dL - 20 07/21 Specimen Type: URINE No comment entered. Ordering Provider: NAVEEN MEDINA Report Released Date/Time: Jun 27, 2023 01:55 PM Reporting Lab: [place] [phone] Performing Lab: [address] [phone] [address] URINALYS IS (STL-PB) URN.UROBIL INOGEN Normalmg /dL 07/21 Specimen Type: URINE No comment entered. Ordering Provider: NAVEEN MEDINA Report Released Date/Time: Jun 27, 2023 01:55 PM Reporting Lab: [place] [phone] Performing Lab: [facility] [address] [place] [phone] [place] [address] URINALYS IS (STL-PB) HEMOGLOBIN [MASS/VOLU ME] IN URINE BY TEST STRIP Negative mg/dL 07/21 Specimen Type: URINE No comment entered. Ordering Provider: NAVEEN MEDINA Report Released Date/Time: Jun 27, 2023 01:55 PM Reporting Lab: [facility] [address] [place] [phone] Performing Lab: [facility] [address] [place] [phone] [facility] URINALYS IS (STL-PB) KETONES [MASS/VOLU ME] IN URINE BY TEST STRIP Negative mg/dL 07/21 Specimen Type: URINE No comment entered. Ordering Provider: NAVEEN MEDINA Report Released Date/Time: Jun 27, 2023 01:55 PM Reporting Lab: [facility] [address] [place], [place] [phone] Performing Lab: [facility] [address] [place] [phone] [facility] URINALYS IS (STL-PB) URN.LEUK.E ST. Negative mg/dL 07/21 Specimen Type: URINE No comment entered. Ordering Provider: NAVEEN MEDINA Report Released Date/Time: Jun 27, 2023 01:55 PM Reporting Lab: [address] [address] Performing Lab: [address] [address] [facility] URINALYS IS (STL-PB) SPECIFIC GRAVITY OF URINE 1.017 1.005 - 1.029 07/21 Specimen Type: URINE No comment entered. Ordering Provider: NAVEEN MEDINA Report Released Date/Time: Jun 27, 2023 01:55 PM Reporting Lab: [address] [address] Performing Lab: [address] [address] [facility] VITAMIN D, 25-HYDRO XY 25-HYDROXY VITAMIN D3 [MASS/VOLU ME] IN SERUM OR PLASMA 25.1 ng/mL 30 - 96 07/21 L Specimen Type: SERUM No comment entered. Ordering Provider: NAVEEN MEDINA Report Released Date/Time: Jun 27, 2023 01:55 PM Reporting Lab: [address] [address] Performing Lab: [address] [address] [facility] Vital Signs Combined list of inpatient and outpatient Vital Signs from Department of Defense and Veterans Affairs, ranging from 12 months to all on record, depending upon the facility. Vital Sign Value Date Comments Source SYSTOLIC BLOOD PRESSURE 135 02/03/20 24 09:13:01 [facility] DIASTOLIC BLOOD PRESSURE 75 024 09:13:01 [facility] PULSE OXIMETRY 97 02/03/2024 09:13:01 [facility] WEIGHT 177.4 02/03/2024 09:13:01 [facility] BMI 28 kg/m2 02/03/2024 09:13:01 [facility] PAIN 0 02/03/2024 09:13:01 [facility] TEMPERATURE 97.8 02/03/2024 09:13:01 [facility] PULSE 68 02/03/2024 09:13:01 [facility] RESPIRATION 16 02/03/2024 09:13:01 [facility] SYSTOLIC BLOOD PRESSURE 149 10/01/19 13:50:45 [facility] DIASTOLIC BLOOD PRESSURE 74 024 13:50:45 [facility] PULSE OXIMETRY 94 10/01/2023 13:50:45 [facility] WEIGHT 180.1 10/01/2023 13:50:45 [facility] BMI 28 kg/m2 10/01/2023 13:50:45 [facility] PAIN 0 10/01/2023 13:50:45 [facility] TEMPERATURE 97.7 10/01/2023 13:50:45 [facility] PULSE 72 10/01/2023 13:50:45 [facility] RESPIRATION 16 10/01/2023 13:50:45 [facility] SYSTOLIC BLOOD PRESSURE 180 09/14/19 11:21:00 [facility] DIASTOLIC BLOOD PRESSURE 90 024 11:21:00 [facility] PAIN 5 09/14/2023 11:21:00 [facility] TEMPERATURE 98 09/14/2023 11:21:00 [facility] PULSE 80 09/14/2023 11:21:00 [facility] RESPIRATION 18 09/14/2023 11:21:00 [facility] SYSTOLIC BLOOD PRESSURE 122 07/22/19 24 08:57:16 [facility] DIASTOLIC BLOOD PRESSURE 78 024 08:57:16 [facility] PULSE OXIMETRY 95 07/22/2023 08:57:16 [facility] WEIGHT 176 07/22/2023 08:57:16 [facility] BMI 28 kg/m2 07/22/2023 08:57:16 [facility] PAIN 0 07/22/2023 08:57:16 [facility] TEMPERATURE 97.5 07/22/2023 08:57:16 [facility] PULSE 66 07/22/2023 08:57:16 [facility] RESPIRATION 16 07/22/2023 08:57:16 [facility] SYSTOLIC BLOOD PRESSURE 146 07/16/19 24 12:55:26 [facility] DIASTOLIC BLOOD PRESSURE 80 024 12:55:26 [facility] PULSE OXIMETRY 97 07/16/2023 12:55:26 [facility] WEIGHT 171.4 07/16/2023 12:55:26 [facility] BMI 27 kg/m2 07/16/2023 12:55:26 [facility] PAIN 4 07/16/2023 12:55:26 [facility] TEMPERATURE 98.4 07/16/2023 12:55:26 [facility] PULSE 72 07/16/2023 12:55:26 [facility] RESPIRATION 18 07/16/2023 12:55:26 [facility] Encounters Combined list of: 1) Encounters from Department of Veterans Affairs facilities going backup to the last 18 months, not all VA inpatient encounters are included; 2) Encounters from the Department of Defense facilities going backup to 280 months. Location Location Details Encounter Type Encounter Number Reason For Visit Attending Provider ADM Date DC Date Status Disposition Source [facility] HC PRO PHONE CALL 11-20 MIN [id number] Diagnos is: ICD-10- CM I25.119 [place] heart disease [place] art w unsp ang pctrs KERRY CHICAS M 12/19 [facility] Outpatient Encounter [id number] NEVA PEREZ M 01/02 [facility] Encounter [id number] Diagnos is: ICD-10- CM J44.1 Chronic obstruc tive pulmona ry disease w (acute) exacerb atCLARISA Russo L 01[facility]02 [facility]P EST MOD 30-39 MIN [id number] Diagnos is: ICD-10- CM 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 DARBY PABLO L 01/04 [facility] Outpatient Encounter [id number] CAROLCHRISTIANO Cota DARIUS T 01/07 [facility] HC PRO PHONE CALL 5-10 MIN [id number] Diagnos is: ICD-10- CM I25.119 [place] heart disease [place] art w uns ang pctrs KERRY CHICAS M 01/15 [facility] En[facility] [id number] ATIF MCCONNELL S 01[facility]17 [facility]P NEW MOD 45-59 MIN [id number] Diagnos is: ICD-10- CM I25.119 [place]cl heart disease of [place] art w uns ang pctrs WENDY RICHARDS 01[facility] Outpatient Encounter [id number] DORI KEARNEY 01/25 [facility] Outpatient Encounter [id number] 01/26 [facility] Outpatient Encounter [id number] 02/13 [facility] Outpatient Encounter [id number] 890 CECILE CARRILLO L 02/25 [facility] Outpatient Encounter [id number] 02/25 [facility] OFF/OP CONSLTJ NEW/EST SF 20 [id number] Diagnos is: ICD-10- CM 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 Larry NEWMAN 03/27 [facility] Outpatient Encounter [id number] GABRIELA CARO 03/30 [facility] Outpatient Encounter [id number] THERESA FRANCISCO 04/18 [facility] Outpatient Encounter [id number] 04/25 [facility] Outpatient Encounter [id number] 05/17 [facility] Outpatient Encounter [id number] CONSTANTINE PEARSON CY S 06/03 [facility] Outpatient Encounter [id number] 06/26 [facility] Outpatient Encounter [id number] DARBY PABLO EE L 06/26 [facility] OFFICE O/P EST MOD 30 MIN [id number] Diagnos is: ICD-10- CM I10 Essenti al (primar y) hyperte nsKINJAL Acharya R 07/15 [facility] Outpatient Encounter [id number] 07/16 [facility] OFFICE O/P EST MOD 30 MIN [id number] Diagnos is: ICD-10- CM 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 WENDY RICHARDS 07/21 [facility] Outpatient Encounter [id number] CHRISTIANO MEDINA MMAD T 08/12 [facility] EMERGENCY DEPT VISIT MOD MDM [id number] Diagnos is: ICD-10- CM K29.00 Acute gastrit is without bleedin YASIR Gaines 09/13 [facility] Outpatient Encounter [id number] YASIR BURTON 09/13 [facility] Outpatient Encounter [id number] 09/15 [facility] OFF/OP CNSLTJ NEW/EST MOD 40 [id number] Diagnos is: ICD-10- CM R10.13 Epigast catrina pain Larry DURAN 09/30 [facility] Outpatient Encounter [id number] KARYNBRITTA JULIAN A 10/01 [facility] Outpatient Encounter [id number] 10/06 [facility] Outpatient Encounter [id number] 10/06 [facility] Outpatient Encounter [id number] Diagnos is: ICD-10- CM R11.10 Vomitin g, unspeci fied CLARISA ROBERSON L 10/06 [facility] Outpatient Encounter [id number] 10/20 [facility] Outpatient Encounter [id number] 10/20 [facility] EGD BIOPSY SINGLE/MUL TIPLE [id number] Diagnos is: ICD-10- CM R19.7 Diarrhe a, unspeci fied TRISTIAN JAMES A 10/21 [facility] OFFICE O/P EST LOW 20 MIN [id number] Diagnos is: ICD-10- CM Z01.810 Encount er for preproc edural cardiov ascular examina suzan DEUTSCHMORGAN Z 10/21 [facility] Outpatient Encounter [id number] 10/21 [facility] Outpatient Encounter [id number] GUILLEHA ICA A 10/21 [facility] Outpatient Encounter [id number] GERALDINE HUBER NA 10/23 [facility] Outpatient Encounter [id number] 10/27 [facility] Outpatient Encounter [id number] 12/03 [facility] Outpatient Encounter [id number] 01/14 [facility] Outpatient Encounter [id number] CHRISTIANO MEDINA MMAD T 01/15 [facility] Outpatient Encounter [id number] 01/22 [facility] OFFICE O/P EST HI 40 MIN [id number] Diagnos is: ICD-10- CM 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 Social History Type Response Date Comment Source Tobacco smoking status NHIS VA-TOBACCO FORMER USER 01/04/2023 [facility] History of tobacco use VA-TOBACCO QUIT < 1 YEAR 01/04/2023 [facility] History of tobacco use ORYX ADMIT TOBACCO SCREEN YES 10/25/2022 [facility] History of tobacco use VA-TOBACCO USER EVERY DAY 10/19/2021 [facility] History of tobacco use VA-TOBACCO USER EVERY DAY 06/24/2020 [facility] History of tobacco use TOBACCO USER OFFERED MEDS 05/14/2017 [facility] History of tobacco use CURRENT TOBACCO USER 12/02/2015 [facility] History of tobacco use CURRENT TOBACCO USER 04/21/2014 [facility] History of tobacco use TOBACCO CESSATION MEDS REFUSED 05/29/[address] [facility] History of tobacco use TOBACCO OFFERRED PT MEDS (PROVIDER) 02/01/2011 [facility] History of tobacco use TOBACCO CESSATION MEDS REFUSED 01/25/2010 not ready to quit [facility] History of tobacco use TOBACCO OFFERRED STOP SMOKING CLINIC 12/02/2006 [facility] History of tobacco use TOBACCO OFFERRED PT MEDS (PROVIDER) 10/03/2006 [facility] This section is an empty social history section. DoD Plan of Care List of future care activities from Department of [facility] Affairs facilities. Additional future care activities may be listed in the Assessment and Plan section. Date/Time Care Activity Care Activity Detail Facili ty 06/04/2024 AMBULATORY - SURGERY AMBULATORY - SURGERY [facility] Advance Directives List of completed, amended, or rescinded Advance Directives on record at Department of [facility] facilities. An actual copy of the Directive is not included. Date Advance Directive Provider Source 10/31/2022 ADVANCE DIRECTIVE DISCUSSION MIROSLAVA JENKINS-ALEX [facility] 10/26/2022 ADVANCE DIRECTIVE DISCUSSION ROSIE FRANCOIS [facility] 03/10/2002 ADVANCE DIRECTIVE ROSE HAQUE
--- OUTSIDE RECORDS SUMMARY | 2024-05-30 15:17 | XMS_ITS ---
Author Name [facility] [place] [facility] [place] Address [address] [place] [address] Care Team Providers Care Busgirl Name Role Phone IVAN MEDINA Primary Care [...] PART A August 06, 2021 PART A [id number] [phone] Rajesh SONI RUCE PATIENT MEDICARE (WNR) MEDICARE (M) PART A August 06, 2021 PART A [id number] Rajesh SONI RUCE PATIENT OFFICE OF [facility] [id number] TORT FEASOR TORT FEASO R May 12, 2023 TORT FEASOR [id number] Rajesh SONI RUCE PATIENT Selected Encounter This section includes the information on record at [place] for the Encounter. Date/Time Encounter Type Encounter Description Reason Provider Source Oct 22, 2023 01:28 PM Outpatient Encounter ADMIN PAT ACTIVTIES (MASNONCT) ISA ONEILL Amrita Encounter Template Text not used by [place] Plan of Treatment: Future Appointments (+ 6 months) and Future Tests (+/- 45 days) The Plan of Treatment section includes future care activities for the patient from all [place] [facility] This section includes future appointments and future orders which are active, pending or scheduled. Future Appointments This section includes appointments that were scheduled to occur 6 months from the date of the Encounter, up to a maximum of 20 appointments. The data comes from all [facility] facilities. Appointment Date/Time Appointment Type Appointme nt Facility Name Feb 03, 2024 09:30 AM AMBULATORY - MEDICINE [facility] Active, Pending, and Scheduled Orders This section includes a listing of several types of active, pending, and scheduled orders, including clinic medications orders, diagnostic test orders, procedure orders and consult orders; where the start date of the order is 45 days before the date of the Encounter or 45 days after the date of theEncounter. The data comes from all [facility]. Test Date/Time Test Type Test Details Facility Name Oct 01, 2023 02:31 PM Laboratory - Chemistry Order LACTOFERRIN,STOOL (STL-MA-PB) STOOL FECES WC ONCE [facility] Oct 07, 2023 12:00 PM Laboratory - Microbiology Order FECAL FAT (STL) STOOL FECES SP ONCE [facility] Oct 07, 2023 12:00 PM Laboratory - Microbiology Order PARASITE EXAM (STL) STOOL FECES SP [facility] Oct 07, 2023 12:00 PM Laboratory - Microbiology Order C&S STOOL STOOL FECES SP [facility] Oct 07, 2023 12:00 PM Laboratory - Chemistry Order GASTROINTESTINAL PCR PANEL STOOL FECES SP [facility] Oct 28, 2023 07:16 AM Laboratory - Microbiology Order FECAL FAT (STL) STOOL FECES SP ONCE [facility] Oct 28, 2023 07:16 AM Laboratory - Chemistry Order LACTOFERRIN,STOOL (STL-MA-PB) STOOL FECES WC ONCE [facility] Oct 28, 2023 07:16 AM Laboratory - Microbiology Order PARASITE EXAM (STL) STOOL FECES SP [facility] Oct 28, 2023 07:16 AM Laboratory - Microbiology Order C&S STOOL STOOL FECES SP [facility] Oct 28, 2023 07:16 AM Laboratory - Chemistry Order GASTROINTESTINAL PCR PANEL STOOL FECES SP [facility] Lab Results: +/- 30 days of the encounter This section includes the Chemistry and Hematology Lab Results on record with [place] for the patient. Radiology Reports and Pathology Reports are provided separately, in subsequent sections. Lab Results This section contains the Chemistry/Hematology Results that were resulted 30 days before or 30 daysafter the date of the Encounter. Date/Time Source Result Type Result - Unit Interpretation Reference Range Comment Oct 04, 2023 12:[address] [facility] OCCULT BLOOD FIT X1 SCREEN Specimen Type: FECES No comment entered. Ordering Provider: GABRIELE DURAN Report Released Date/Time: Oct 10, 2023 11:53 AM Reporting Lab: [facility] [address] [id number] Performing Lab: [address] [id number] OCCULT BLOOD (FIT) #1 OF 1 Negative Negative Social History: Smoking Status (Most current) and Tobacco Use (All prior to encounter date) This section includes the most current, and the historical, smoking and tobacco- related health factors from the [place] facility where the Encounter took place. Current Smoking Status This section includes the most current smoking, or tobacco-related health factor, from the [place] facility where the Encounter took place. Date/Time Current Smoking Status Comment Facil ity Oct 25, 2022 05:52 PM ORYX ADMIT TOBACCO SCREEN YES [facility] Tobacco Use History This section includes a history of the smoking, or tobacco-related health factors, that were collected on or before the date of the Encounter. The data comes from the [place] facility where the Encounter took place. Date/Time Smoking Status/Tobacco Use Comment F acility Oct 25, 2022 05:52 PM ORYX ADMIT TOBACCO USE CIGS GR 5D 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 Oct 25, 2022 05:52 PM ORYX DAILY TOBACCO MEDS REFUSED [facility] Advance Directives: All historical and current Section Date Range: From patient's date of to the date document was created. This section includes ALL of a patient's completed or amended [place] Advance and Rescinded Directives. The entries below indicate that a directive exists for the patient, but an actual copy is not included with this document. The data comes from all [place] facilities. Date Advance Directives Provider Source Oct 31, 2022 ADVANCE DIRECTIVE DISCUSSION MIROSLAVA JENKINS-ALEX [facility] Oct 26, 2022 ADVANCE DIRECTIVE DISCUSSION ROSIE FRANCOIS [facility] Mar 10, 2002 ADVANCE DIRECTIVE ROSE HAQUE [facility] Pathology Reports: +/- 30 days of the encounter Pathology Reports For cases when an order for pathology services may have been completed prior to the date of the Encounter, the report list includes the Pathology Reports that were completed up to 30 days before dateof the Encounter. For cases when an order for pathology services may have been completed after the date of the Encounter, the report list also includes the Pathology Reports that were completed up to30 days after date of the Encounter. The data comes from all [place] treatment facilities. Date/Time Pathology Report Provider Source Oct 24, 2023 01:21 PM LR SURGICAL PATHOL OGY REPORT: LOCAL TITLE: LR SURGICAL PATHOLOGY REPORT STANDARD TITLE: PATHOLOGY PROCEDURE NOTE DATE OF NOTE: OCT 24, 2023@13:21:20 ENTRY DATE: OCT 24, 2023@13:21:20 AUTHOR: JAYNE HUBER EXP COSIGNER: URGENCY: STATUS: COMPLETED $APHDR - - - - - - - - - - - - - - - - - - - - - - - - - - - - - - - - - - - - - - - - MEDICAL RECORD SURGICAL PATHOLOGY - - - - - - - - - - - - - - - - - - - - - - - - - - - - - - - - - - - - - - - - PATHOLOGY REPORT Accession No. SP [id number] - - - - - - - - - - - - - - - - - - - - - - - - - - - - - - - - - - - - - - - - $TEXT Submitted by: BENJI JAMES Date obtained: Oct 22, 2023 15:06 - - - - - - - - - - - - - - - - - - - - - - - - - - - - - - - - - - - - - - - - Specimen (Received Oct 22, 2023 15:10): A. DUODENAL BIOPSIES B. GASTRIC BIOPSIES C. DISTAL ESOPHAGEAL BIOPSIES D. CECAL POLYP E. RANDOM COLON BIOPSIES F. ASCENDING COLON POLYPS X 2 G. DESCENDING COLON POLYPS X 2 - - - - - - - - - - - - - - - - - - - - - - - - - - - - - - - - - - - - - - - - BRIEF CLINICAL HISTORY: diarrhea, hx BE and polyps - - - - - - - - - - - - - - - - - - - - - - - - - - - - - - - - - - - - - - - - PREOPERATIVE DIAGNOSIS: diarrhea - - - - - - - - - - - - - - - - - - - - - - - - - - - - - - - - - - - - - - - - OPERATIVE FINDINGS: 2 tongues salmon mucosa, gastritis, polyps - - - - - - - - - - - - - - - - - - - - - - - - - - - - - - - - - - - - - - - - POSTOPERATIVE DIAGNOSIS: as above Surgeon/physician: AMMY MAXWELL MD =-=-=-=-=-=-=-=-=-=-=-=-=-=-= -=-=-=-=-=-=-=-=-=-=-=-=-=-=- =-=-=-=-=-=-=-=-=-=-= - - - - - - - - - - - - - - - - - - - - - - - - - - - - - - - - - - - - - - - - PATHOLOGY REPORT Accession No. SP [id number] - - - - - - - - - - - - - - - - - - - - - - - - - - - - - - - - - - - - - - - - GROSS DESCRIPTION: Meka Tidwell, 10/22/23 The specimen is received in formalin in seven containers, each labeled with the patient's full name and SSN. A. Labeled as Duodenal Biopsies are three stone tissue fragments measuring from 0.3cm to 0.5cm, in greatest dimension and 0.6 x 0.5 x 0.2cm in aggregate, which are submitted in toto in A1. B. Labeled as Gastric Biopsies are two stone tissue fragments measuring 0.3 x 0.3 x 0.3cm and 0.5 x 0.3 x 0.3cm, which are submitted in toto in B1. C. Labeled as Distal Esophageal Biopsies are multiple stone tissue fragments measuring 0.4 x 0.4 x 0.2cm in aggregate, which are submitted in toto in C1. D. Labeled as Cecal Polyp is one stone tissue fragment measuring 0.4 x 0.3 x 0.2cm, which is submitted in toto in D1. E. Labeled as Random Colon Biopsies are multiple stone tissue fragments measuring 1.0 x 0.9 x 0.2cm in aggregate, which are submitted in toto in E1. F. Labeled as Ascending Colon Polyps x 2 are two stone tissue fragments measuring 0.7 x 0.5 x 0.3cm and 0.8 x 0.7 x 0.4cm, which are submitted in toto in F1. G. Labeled as Descending Colon Polyp is one stone tissue fragment measuring 0.5 x 0.4 x 0.2cm, which is submitted in toto in G1. MICROSCOPIC EXAM: Jayne Huber MD 10/24/2023 A. Microscopic description substantiates final diagnosis. B. The microscopic review of gastric mucosa biopsies demonstrates mild foveolar hyperplasia, congestion, and smooth muscle bundles extending towards the surface, features consistent with mild reactive gastropathy. Mild chronic inflammation noted. Intestinal metaplasia and dysplasia are not seen. Immunostain for H. pylori performed with appropriately reactive control is negative. Clinical correlation is required. C. Additional deeper levels were reviewed. Microscopic description substantiates final diagnosis. D and E. Microscopic description substantiates final diagnosis. F. Additional deeper levels were reviewed. Microscopic description substantiates final diagnosis. G. Microscopic description substantiates final diagnosis. DIAGNOSIS: SMALL INTESTINE, DUODENUM, BIOPSIES (A): - BENIGN DUODENAL MUCOSA WITH INTACT VILLOUS ARCHITECTURE - NEGATIVE FOR INCREASED INTRAEPITHELIAL LYMPHOCYTES, ACUTE INFLAMMATION, DYSPLASIA OR MALIGNANCY STOMACH, BIOPSIES (B): - MILD REACTIVE GASTROPATHY AND MILD CHRONIC INFLAMMATION - IMMUNOSTAIN FOR H. PYLORI IS NEGATIVE - SEE DESCRIPTION ESOPHAGUS, DISTAL, BIOPSIES (C): - SQUAMOCOLUMNAR MUCOSA WITH MILD CHRONIC INFLAMMATION - INTESTINAL METAPLASIA WITHOUT DYSPLASIA - SEE DESCRIPTION LARGE INTESTINE, CECUM, POLYP, BIOPSIES (D): - TUBULAR ADENOMA - NEGATIVE FOR HIGH-GRADE DYSPLASIA OR MALIGNANCY LARGE INTESTINE, RANDOM COLON, BIOPSIES (E): - BENIGN COLONIC MUCOSA WITH PROMINENT LYMPHOID AGGREGATES - NEGATIVE FOR INCREASED INTRAEPITHELIAL LYMPHOCYTES, ACUTE INFLAMMATION, DYSPLASIA OR MALIGNANCY LARGE INTESTINE, ASCENDING COLON, POLYPS X2, BIOPSIES (F): - SESSILE SERRATED LESION/POLYP - TUBULAR ADENOMA - NEGATIVE FOR HIGH-GRADE DYSPLASIA OR MALIGNANCY LARGE INTESTINE, DESCENDING COLON, POLYPS X2, BIOPSIES (G): - TUBULAR ADENOMAS - NEGATIVE FOR HIGH-GRADE DYSPLASIA OR MALIGNANCY /jam/ JAYNE HUBER Pathologist Signed Oct 24, 2023@13:21 Performing Laboratory: Surgical Pathology Report Performed By: [facility], [facility]# [id number] [address] [place] [phone] $FTR - - - - - - - - - - - - - - - - - - - - - - - - - - - - - - - - - - - - - - - - (End of report) JAYNE HUBER MD Date Oct 24, 2023 - - - - - - - - - - - - - - - - - - - - - - - - - - - - - - - - - - - - - - - - SUDHAKAR SONI STANDARD FORM 515 ID:[id number] SEX:M :1955 AGE: 68 LOC:GILABA2 PCP: Ivan Medina MD /jam/ JAYNE HUBER Pathologist Signed: 10/24/2023 13:21 JAYNE HUBER [facility] Encounter Notes: All associated encounter notes This section contains the clinical notes associated to the Encounter. Date/Time Encounter Note(s) Provider Source Oct 22, 2023 01:28 PM ANESTHESIOLOGY NIRALI WSHEET: LOCAL TITLE: ANES INTRA-OP FLOWSHEET STL STANDARD TITLE: ANESTHESIOLOGY FLOWSHEET DATE OF NOTE: OCT 22, 2023@13:28 ENTRY DATE: OCT 22, 2023@13:28:21 AUTHOR: ISA ONEILL COSIGNER: URGENCY: STATUS: COMPLETED Patient: SUDHAKAR SONI SSN: [id number] Date of Operation: 10/22/2023 Surgery Start Time: Surgery End Time: Anesthesia Care Start: 10/22/2023 12:20 Anesthesia Care End: 10/22/2023 13:26 Anesthesia Method: Monitored 10/22/2023 12:24 (Primary), Level Of Consciousness: Sedated, Monitors Applied, Oxygen Therapy: Mask, EtCO2 Verified: Waveform Positioning: Head Neutral, Head And Neck In Alignment With Spine, Pressure Points Padded & Checked, Eyes, Ears And Nose Free Of Pressure Adjunct Devices: Oral Airway ASA Number: 3 Procedure: EGD, COLONOSCOPY Diagnosis: EPIGASTRIC PAIN, DIARRHEA Holding, Anesthesia, PACU Drugs: -------- Lidocaine: 100 mg Propofol: 100 mg Propofol gtt: 446.645 mg DexmedeTOMidine: 8 mcg Phenylephrine: 600 mcg Holding, Anesthesia, PACU Fluids: --------- Normal Saline: 400 ml Resources: Headrest - Pillow Staff: --------- ISA ONEILL PRIN. ANES. LIU, LUCIA Z, ANES. SUPER. Procedure Date: 10/22/2023 Procedure Start Time: 10/22/2023 12:27 Procedure End Time: 10/22/2023 13:21 /jam/ Isa Oneill SECURITY OPERATIONS SPECIALIST SECURITY OPERATIONS SPECIALIST Signed: 10/22/2023 13:28 ISA ONEILL [facility]
--- OUTSIDE RECORDS SUMMARY | 2024-05-30 15:17 | XMS_ITS | CONTINUITY OF CARE DOCUMENT ---
Author Name devyn, devyn Address Unknown Organization [facility] Address [address] [address] [place] [address] Phone [phone] Care Team Providers Care Plastics Tooling Engineer Name Role Phone Sony Fisher MD Unavailable [phone] Sony Fisher MD Unavailable [phone] INSURANCE PROVIDERS Payer name Policy type / Coverage type Cosme red libertarian ID [employer] [facility] [employer] Direct [id number] FOR LIFE [id number] [place] Medicare [id number]
--- NOTE | 2024-05-30 15:44 | ED.LOWEXIN ---
HPI - Extremity Injury (Lower) General Chief Complaint: Extremity Injury, Lower Stated Complaint: right foot injury Time Seen by Provider: 05/30/24 14:04 History of Present Illness HPI Narrative: 68-year-old male presenting to the emergency department for evaluation of right foot injury. Patient states he was at work when a stack of chest onto the top of his right foot. He has a small abrasion to the dorsal aspect but is able to ambulate albeit with a small limb. Able to move his toes, no numbness or paresthesia. Good mobility of the ankle, tenderness is focal around the dorsal distal midfoot. No history of ankle injuries or surgery. Was otherwise in his normal state of health. No other injuries or trauma. No bruising noted. Related Data Allergies Allergy/AdvReac Type Severity Reaction Status Date / Time acetaminophen (From Vicodin) Allergy Rash Verified 05/30/24 14:04 diazepam (From Valium) Allergy Rash Verified 05/30/24 14:04 hydrocodone (From Vicodin) Allergy Rash Verified 05/30/24 14:04 Review of Systems Review of Systems: As reviewed above in HPI Exam Narrative: GENERAL: [Well-appearing, well-nourished, and in no acute distress.] HEAD: [Normocephalic, atraumatic.] EYES: [PERRLA and EOMI.] ENT: Nares clear, no rhinorrhea or epistaxis. Mucous membranes moist. NECK: Supple. CHEST: [Clear to auscultation. No respiratory distress.] HEART: [Regular rate and rhythm]. No murmur heard. [Normal peripheral pulses.] ABDOMEN: [Soft, nondistended], [nontender], [No rigidity or guarding] EXTREMITIES: Normal range of motion, good plantar and dorsiflexion of bilateral ankles. There is swelling over the distal right midfoot, no overlying bruising or ecchymoses, small abrasion over the dorsal foot from the impact but no laceration. No bleeding. No plantar ecchymosis, no midfoot instability, no ankle instability on examination. No other injuries. SKIN: Warm, dry, no rash. NEURO: [No focal deficits]. Alert and oriented [x3.] PSYCH: [Normal mood and affect.] Course Vital Signs Vital signs: Vital Signs Temperature 36.7 C 05/30/24 12:57 Pulse Rate 91 05/30/24 12:57 Respiratory Rate 18 05/30/24 12:57 Blood Pressure 160/74 H 05/30/24 12:57 Pulse Oximetry 98 05/30/24 12:57 Oxygen Delivery Autopap 05/30/24 12:57 Temperature 36.7 C 05/30/24 12:57 Pulse Rate 91 05/30/24 12:57 Respiratory Rate 18 05/30/24 12:57 Blood Pressure 160/74 H 05/30/24 12:57 Pulse Oximetry 98 05/30/24 12:57 Oxygen Delivery Autopap 05/30/24 12:57 MDM - Extremity Injury (Lower) MDM Narrative Medical decision making narrative: 68-year-old male presenting after having a right foot injury. Patient had a stack of chairs fall onto his right foot that occurred earlier this morning. Is able to bear weight and limping slightly. Some bruising and abrasion over the dorsal aspect of the right distal midfoot. No plantar ecchymosis, no ankle instability, good dorsal and plantar flexion of the ankle. Normal coloration without any paresthesias. Neurovascular intact with good dorsalis pedis pulse 2 +. Suspicion presently is for potential underlying fracture, less likely dislocation, less likely ligamentous injury. Most likely musculoskeletal strain and ligamentous strain from direct impact. No crush injury, compartments are soft, no evidence of compartment pressure elevations. X-rays were obtained and independently reviewed. There is normal alignment, no fractures. Normal joint spaces. Overall no acute fracture osseous process. Patient was re-evaluated and relieved. Provided an Krishna wrap for comfort as well as crutches for ambulation assistance given his injury. A work note was provided. He was given Toradol here in the ED and sent home with Tylenol and Naprosyn as needed. Patient also got bacitracin ointment to the top of his right foot, tetanus is already up today. Medical Records Attestation: I reviewed the patient's medical records. Imaging Data Attestation: I personally reviewed and interpreted this imaging study as follows: My impression: Impressions Foot X-Ray 05/30/24 14:17 IMPRESSION: 1. No fracture. Discharge Plan Discharge Clinical Impression: Foot pain, right, Foot swelling, Superficial abrasion Patient Disposition: Home, Self-Care Condition: Stable Instructions: Antibiotic Form, Swollen Joint (ED), Crush Injury (ED) Additional Instructions: Apply compression and ice packs to the area up to 20 minutes at a time for the next 2 days and then he can start adding and heat. Naprosyn and Tylenol for analgesia, compression with Krishna wraps to keep the swelling down. Will provide you crutches if you needed ambulation assistance. Swelling and pain should subside after several days. Return with any new or worsening concerns otherwise follow-up with your regular doctor. Patient Language: Persian Prescriptions: New naproxen [Naprosyn] 500 mg tablet 500 mg PO BID PRN (Reason: pain) Qty: 14 0RF No Action baclofen 10 mg tablet 10 mg PO TID 3 Days Qty: 10 0RF naproxen 500 mg tablet 500 mg PO BID PRN (Reason: pain) 7 Days Qty: 14 0RF Follow-up/Referrals: [facility]ST[facility] [Primary Care Provider] - Time of Disposition: 15:52
[2024-05-30] MEDS: KETOROLAC 10 MG TABLET PO (16:14)
== END 2024-05-30 16:18 | disposition home or self-care (01) ==
PROVIDERS: Emergency Provider Student in an Organized Health Care Education/Training Program
DX: S90.811A Abrasion, right foot, initial encounter (principal); W20.8XXA Other cause of strike by thrown, projected or falling object, initial encounter
CPT/HCPCS: 73630; 99283; A9270

== ENCOUNTER 2025-03-26 18:50 | Emergency (ER) | payer OTHER, SELFPAY ==
[2025-03-26 19:15] VITALS: BP 116/67; PULSE 72; RESP 16; TEMP 36.5; O2SAT 100
--- NOTE | 2025-03-26 19:52 | ED.EAR ---
HPI - Ear Problem General Chief complaint: Ear Stated complaint: something stuck in ear Time Seen by Provider: 03/26/25 19:47 Source: patient Mode of arrival: ambulatory Limitations: no limitations History of Present Illness HPI Narrative: 69 YEARS OLD WHITE MALE CAME TO THE ED FROM HOME BY PRIVATE CAR COMPLAINING OF YEAR BLOCK FROM HIS HEADPHONES STRUCK IN THE LEFT EAR HOURS ABOVE. HIS SIGNIFICANT OTHER TRIED TO GET IT OUT USING TWEEZER WITHOUT SUCCESS. PATIENT IS TELLING ME THAT HE HAVE HISTORY OF CHRONIC LEFT EAR PAIN FOR OVER 1 YEAR. HE DOES GO TO [facility]. Related Data Allergies Allergy/AdvReac Type Severity Reaction Status Date / Time acetaminophen (From Vicodin) Allergy Rash Verified 05/30/24 14:04 diazepam (From Valium) Allergy Rash Verified 05/30/24 14:04 hydrocodone (From Vicodin) Allergy Rash Verified 05/30/24 14:04 Review of Systems Review of Systems: All systems reviewed & are unremarkable except as noted in HPI and below Exam Narrative: GENERAL APPEARANCE: WELL-DEVELOPED, WELL-NOURISHED SKIN: NORMAL COLOR HEAD: NORMOCEPHALIC, NONTRAUMATIC EYES: CLEAR CONJUNCTIVA ENT: OROPHARYNX NORMAL, LEFT AUDITORY CANAL ERYTHEMATOUS, DIFFUSELY TENDER HIGH LIKELY SECONDARY TO TRYING TO GET FOREIGN BODY OUT, NO FOREIGN BODY AT THIS TIME. NECK: SUPPLE, NONTENDER NEUROLOGIC: ALERT AND ORIENTED ?3, AUTOMOTIVE ELECTRICAL FITTER IS NORMAL TESTED, NO GROSS MOTOR DEFICIT Course Vital Signs Vital signs: Vital Signs Temperature 36.5 C 03/26/25 19:15 Pulse Rate 72 03/26/25 19:15 Respiratory Rate 16 03/26/25 19:15 Blood Pressure 116/67 03/26/25 19:15 Pulse Oximetry 100 03/26/25 19:15 Oxygen Delivery Room Air 03/26/25 19:15 Temperature 36.5 C 03/26/25 19:15 Pulse Rate 72 03/26/25 19:15 Respiratory Rate 16 03/26/25 19:15 Blood Pressure 116/67 03/26/25 19:15 Pulse Oximetry 100 03/26/25 19:15 Oxygen Delivery Room Air 03/26/25 19:15 MDM MDM Narrative Medical decision making narrative: PATIENT CAME TO THE ED WITH FOREIGN BODY LEFT EAR, PHYSICAL EXAM SHOWED NO FOREIGN OF 30 LEFT EAR CANAL SHOWING DIFFUSE ERYTHEMA AND VERY SENSITIVE TO TOUCH HIGH LIKELY SECONDARY TO THE MULTIPLE TRIALS BY HIS TO REMOVE IMAGINARY FOREIGN BODY OUT OF THE EAR Differential Diagnosis Differential Diagnosis: ABOVE Critical Care Time Critical Care Time Critical Care Time: No Discharge Plan Discharge Clinical Impression: Otitis externa Patient Disposition: Home Condition: Stable Instructions: Earache (ED) Additional Instructions: RETURN IF SYMPTOMS ARE WORSENING , CALL YOUR FAMILY PHYSICIAN FOR APPOINTMENT, TAKE TYLENOL, IBUPROFEN NEEDED FOR ACHES AND PAIN, CONTINUE HOME MEDICATIONS. Patient Language: Maori Prescriptions: New Cortisporin-TC 3.3-3-10-0.5 mg/mL drops,suspension 1 applic LEFT EAR Q4H Qty: 10 0RF Rx Instructions: apply to (cotton) wick; replace wick every 24 hours No Action baclofen 10 mg tablet 10 mg PO TID 3 Days Qty: 10 0RF naproxen 500 mg tablet 500 mg PO BID PRN (Reason: pain) 7 Days Qty: 14 0RF naproxen [Naprosyn] 500 mg tablet 500 mg PO BID PRN (Reason: pain) Qty: 14 0RF Follow-up/Referrals: [facility],MISTY [Primary Care Provider, Medical]
== END 2025-03-26 20:32 | disposition home or self-care (01) ==
LOC: ANHED 20:31
PROVIDERS: Emergency Provider Emergency Medicine
DX: H60.92 Unspecified otitis externa, left ear (principal)
CPT/HCPCS: 99283